=== PATIENT | female | born 1980 | race Caucasian/White ===

== ENCOUNTER 2019-08-11 09:48 | Inpatient (IN) | payer BC ==
[~2019-08-11] VITALS: Ht 160 cm; Wt 68.9 kg
[2019-08-11] MEDS ORDERED: ONDANSETRON 2MG/ML, 2ML ONE (10:28)
[2019-08-11] MEDS ORDERED: SODIUM CHLORIDE FLUSH 10ML SYR IVF ONE (10:30)
[2019-08-11] MEDS ORDERED: ONDANSETRON 2MG/ML, 2ML IVPush ONE (10:30)
[2019-08-11] MEDS ORDERED: SODIUM CHLORIDE 0.9% 1,000ML IVBOLUS ONE (10:30)
[2019-08-11] MEDS ORDERED: HYDR-3241 PO (10:39)
[2019-08-11 10:41] LABS: BASOPHILS # (AUTO) 0.15 x10^3/uL (0-0.1); BASOPHILS % (AUTO) 1 % (0-1); EOSINOPHILS % (AUTO) 0 % (1-7); LYMPHOCYTES # (AUTO) 2.77 x10^3/uL (1-3.4); LYMPHOCYTES % (AUTO) 21 % (22-44); MD NO; MEAN CORPUSCULAR HGB CONC 33.6 g/dL (32.4-35.8); MEAN CORPUSCULAR VOLUME 92.1 fL (80-100); MEAN PLATELET VOLUME 8.8 fL (7.4-10.4); MONOCYTES # (AUTO) 0.67 x10^3/uL (0.2-0.8); MONOCYTES % (AUTO) 5 % (2-9); NEUTROPHILS # (AUTO) 9.95 x10^3/uL (1.8-6.8); NEUTROPHILS % (AUTO) 74 % (42-75); PLATELET COUNT 301 x10^3/uL (130-400); RED BLOOD COUNT 4.86 x10^6/uL (3.82-5.3); RED CELL DISTRIBUTION WIDTH 12.8 % (9.6-15.2)
[2019-08-11] MEDS ORDERED: METOCLOPRAMIDE 5 MG/ML, 2ML ONE (10:45)
--- NOTE | 2019-08-11 10:49 | NUR ---
remain nauseated/ vomited x 2 post med care manager. Provider made aware to admin regaln
[2019-08-11 10:51] LABS: ALANINE AMINOTRANSFERASE 33 U/L (12-78); ALBUMIN 4.8 g/dL (3.4-5.0); ANION GAP 10 mmol/L (5-15); CALCIUM 9.5 mg/dL (8.5-10.1); CHLORIDE 98 mmol/L (98-107)
[2019-08-11 10:54] LABS: ALKALINE PHOSPHATASE 92 U/L (45-117); CREATININE 1.06 mg/dL (0.55-1.02); TOTAL PROTEIN 8.5 g/dL (6.4-8.2)
[2019-08-11] MEDS ORDERED: METOCLOPRAMIDE 5 MG/ML, 2ML IVPush ONE (11:00)
--- NOTE | 2019-08-11 11:27 | NUR ---
Remain nauseated- Provider to bedside. Provider asked for clonidine (patient has not has her home 7.5 of [place] which she takes tid for a few day). Provider would like phernergan instead
[2019-08-11] MEDS ORDERED: PROMETHAZINE 25 MG/ML, 1ML IM ONE (11:30)
[2019-08-11] MEDS ORDERED: PROMETHAZINE 25 MG/ML, 1ML ONE (11:30)
--- NOTE | 2019-08-11 11:30 | NUR ---
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
--- NOTE | 2019-08-11 11:39 | NUR ---
medicated per emar reminded of need for ua
--- NOTE | 2019-08-11 12:01 | NUR ---
Nausea improved to 1/10. Provider made aware. Provider asked for order for gi cocktail (remain with reflux symptoms) and potassium orders
[2019-08-11] MEDS ORDERED: MAALOX/HYOSCYAMINE/LIDOCAINE 45 ML BTL ONE (12:06)
[2019-08-11] MEDS ORDERED: POTASSIUM CHLORIDE 40 MEQ in SODIUM CHLORIDE 0.9% 500 ML IV ONE (12:30)
[2019-08-11] MEDS ORDERED: MAALOX/HYOSCYAMINE/LIDOCAINE 45 ML BTL PO ONE (12:30)
--- NOTE | 2019-08-11 12:30 | NUR ---
PROVIDED WITH LUNCH TRAY. POTASSIUM REPLETION RECEIVED FROM PHARMACY- TO ADMIN SHORTLY
[2019-08-11 13:23] LABS: MICROSCOPIC NOT IND
[2019-08-11 13:24] LABS: CULTURE INDICATED? NO
[2019-08-11 13:44] VITALS: BP 116/75
[2019-08-11] MEDS ORDERED: POTASSIUM CHLORIDE 20 MEQ in SODIUM CHLORIDE 0.9% 250 ML IV ONE (14:00)
[2019-08-11] MEDS ORDERED: ENOXAPARIN 40 MG/0.4 ML SQ SCH (14:00)
[2019-08-11] MEDS: SODIUM CHLORIDE 0.9% 1,000 ML IV SCH (17:37)
[2019-08-11] MEDS: ENOXAPARIN 40 MG/0.4 ML SQ SCH (17:37)
[2019-08-11] MEDS: ACETAMINOPHEN 325 MG TABLET PO PRN (17:37)
[2019-08-11 17:45] VITALS: BP 85/44
[2019-08-11 17:45] LABS: TROPONIN I < 0.015 ng/mL (0.000-0.045)
[2019-08-11 17:50] LABS: MD NO
[2019-08-11 18:23] LABS: BASOPHILS # (AUTO) 0.04 x10^3/uL (0-0.1); BASOPHILS % (AUTO) 0 % (0-1); EOSINOPHILS # (AUTO) 0.01 x10^3/uL (0-0.4); EOSINOPHILS % (AUTO) 0 % (1-7); LYMPHOCYTES # (AUTO) 2.94 x10^3/uL (1-3.4); LYMPHOCYTES % (AUTO) 29 % (22-44); MEAN CORPUSCULAR HEMOGLOBIN 31.1 pg (27.0-34.8); MEAN CORPUSCULAR HGB CONC 33.9 g/dL (32.4-35.8); MEAN CORPUSCULAR VOLUME 91.7 fL (80-100); MEAN PLATELET VOLUME 9.3 fL (7.4-10.4); MONOCYTES # (AUTO) 0.66 x10^3/uL (0.2-0.8); MONOCYTES % (AUTO) 7 % (2-9); NEUTROPHILS # (AUTO) 6.56 x10^3/uL (1.8-6.8); NEUTROPHILS % (AUTO) 64 % (42-75); PLATELET COUNT 230 x10^3/uL (130-400); RED BLOOD COUNT 3.94 x10^6/uL (3.82-5.3); RED CELL DISTRIBUTION WIDTH 12.5 % (9.6-15.2)
[2019-08-11] MEDS ORDERED: OMNIPAQUE 350 MG/ML, 100ML BOTTLE ONE (18:39)
[2019-08-11 20:33] VITALS: BP 97/51
[2019-08-11] MEDS: ZOLPIDEM 10MG TABLET PO PRN (22:02)
[2019-08-11 23:48] LABS: TROPONIN I < 0.015 ng/mL (0.000-0.045)
[2019-08-12 01:28] VITALS: BP 120/73
[2019-08-12] MEDS: SODIUM CHLORIDE 0.9% 1,000 ML IV SCH (05:51)
[2019-08-12] MEDS ORDERED: ONDANSETRON 2MG/ML, 2ML ONE (06:10)
[2019-08-12] MEDS: ONDANSETRON 2MG/ML, 2ML IVPush PRN ×4 (06:12→19:30)
[2019-08-12 06:31] LABS: BASOPHILS # (AUTO) 0.05 x10^3/uL (0-0.1); BASOPHILS % (AUTO) 1 % (0-1); EOSINOPHILS # (AUTO) 0.03 x10^3/uL (0-0.4); EOSINOPHILS % (AUTO) 0 % (1-7); LYMPHOCYTES # (AUTO) 3.29 x10^3/uL (1-3.4); LYMPHOCYTES % (AUTO) 39 % (22-44); MD NO; MEAN CORPUSCULAR HEMOGLOBIN 30.7 pg (27.0-34.8); MEAN CORPUSCULAR HGB CONC 33.3 g/dL (32.4-35.8); MEAN CORPUSCULAR VOLUME 92.4 fL (80-100); MEAN PLATELET VOLUME 9.1 fL (7.4-10.4); MONOCYTES # (AUTO) 0.47 x10^3/uL (0.2-0.8); MONOCYTES % (AUTO) 6 % (2-9); NEUTROPHILS # (AUTO) 4.61 x10^3/uL (1.8-6.8); NEUTROPHILS % (AUTO) 55 % (42-75); PLATELET COUNT 224 x10^3/uL (130-400); RED BLOOD COUNT 4.27 x10^6/uL (3.82-5.3); RED CELL DISTRIBUTION WIDTH 12.6 % (9.6-15.2)
[2019-08-12 06:36] LABS: CHLORIDE 106 mmol/L (98-107)
[2019-08-12 06:37] VITALS: BP 136/88
[2019-08-12 06:58] LABS: ALANINE AMINOTRANSFERASE 30 U/L (12-78); ALBUMIN 3.7 g/dL (3.4-5.0); ALKALINE PHOSPHATASE 72 U/L (45-117); ANION GAP 9 mmol/L (5-15); BILIRUBIN,TOTAL 0.7 mg/dL (0.2-1.0); CALCIUM 8.4 mg/dL (8.5-10.1); CREATININE 0.82 mg/dL (0.55-1.02); TOTAL PROTEIN 6.8 g/dL (6.4-8.2)
[2019-08-12] MEDS ORDERED: POTASSIUM CHLORIDE 40 MEQ in SODIUM CHLORIDE 0.9% 500 ML IV SCH (08:30)
[2019-08-12 08:45] LABS: AMPHETAMINE SCREEN, URINE Negative (Negative); BARBITURATE SCREEN, URINE Negative (Negative); BENZODIAZEPINE SCREEN, URINE Negative (Negative); CANNABINOID SCREEN, URINE Positive (Negative); COCAINE SCREEN, URINE Negative (Negative); METHADONE SCREEN, URINE Negative (Negative); OPIATE SCREEN, URINE Negative (Negative)
[2019-08-12] MEDS ORDERED: POTASSIUM CHLORIDE 20 MEQ TAB.ER.PRT PO SCH ×2 (10:00→10:30)
[2019-08-12] MEDS ORDERED: POTASSIUM PHOSPHATE 88 MEQ in SODIUM CHLORIDE 0.9% 1,000 ML IV ONE (10:00)
[2019-08-12] MEDS ORDERED: POTASSIUM CHLORIDE 20 MEQ TAB.ER.PRT ONE ×2 (10:01→14:35)
[2019-08-12] MEDS: LORazepam 2 MG/ML, 1ML IVPush PRN (10:27)
[2019-08-12] MEDS ORDERED: MAGNESIUM SULFATE PMX 2GM/50ML 50 ML IV ONE (10:30)
[2019-08-12 12:49] VITALS: BP 129/88
[2019-08-12] MEDS: ENOXAPARIN 40 MG/0.4 ML SQ SCH ×2 (16:30→17:35)
[2019-08-12] MEDS: ZOLPIDEM 10MG TABLET PO PRN (19:30)
[2019-08-12 19:32] VITALS: BP 137/94
[2019-08-12] MEDS ORDERED: POTASSIUM CHLORIDE 80 MEQ in SODIUM CHLORIDE 0.9% 1,000 ML IV ONE (22:00)
[2019-08-13 03:00] VITALS: BP 136/89
[2019-08-13] MEDS: ACETAMINOPHEN 325 MG TABLET PO PRN (03:15)
[2019-08-13] MEDS: ONDANSETRON 2MG/ML, 2ML IVPush PRN ×2 (03:15→07:36)
[2019-08-13] MEDS: LORazepam 2 MG/ML, 1ML IVPush PRN (03:15)
[2019-08-13] MEDS: SODIUM CHLORIDE 0.9% 1,000 ML IV SCH (03:15)
[2019-08-13 06:21] LABS: BASOPHILS # (AUTO) 0.11 x10^3/uL (0-0.1); BASOPHILS % (AUTO) 1 % (0-1); EOSINOPHILS # (AUTO) 0.04 x10^3/uL (0-0.4); EOSINOPHILS % (AUTO) 0 % (1-7); LYMPHOCYTES % (AUTO) 34 % (22-44); MD NO; MEAN CORPUSCULAR HEMOGLOBIN 30.8 pg (27.0-34.8); MEAN CORPUSCULAR HGB CONC 33.3 g/dL (32.4-35.8); MEAN CORPUSCULAR VOLUME 92.7 fL (80-100); MEAN PLATELET VOLUME 9.1 fL (7.4-10.4); MONOCYTES # (AUTO) 0.67 x10^3/uL (0.2-0.8); MONOCYTES % (AUTO) 6 % (2-9); NEUTROPHILS # (AUTO) 6.76 x10^3/uL (1.8-6.8); NEUTROPHILS % (AUTO) 59 % (42-75); PLATELET COUNT 280 x10^3/uL (130-400); RED BLOOD COUNT 4.98 x10^6/uL (3.82-5.3); RED CELL DISTRIBUTION WIDTH 12.4 % (9.6-15.2)
[2019-08-13 06:23] LABS: ANION GAP 8 mmol/L (5-15); CALCIUM 8.9 mg/dL (8.5-10.1); CHLORIDE 106 mmol/L (98-107)
[2019-08-13 06:52] VITALS: BP 123/87
== END 2019-08-13 10:44 | disposition home or self-care (01) | DRG 392 ==
LOC: ED 10:56 → INTOOBSV 12:22 → EDIP 12:22 → OBSVTOIN 12:22 → 4EST 13:39 → 4WST 17:50
PROVIDERS: ADMIT Internal Medicine; ATTEND Internal Medicine
DX: A08.4 Viral intestinal infection, unspecified (principal); E83.39 Other disorders of phosphorus metabolism; E87.6 Hypokalemia; Z90.49 Acquired absence of other specified parts of digestive tract; Z90.710 Acquired absence of both cervix and uterus
CPT/HCPCS: 36415; 71045; 74177; 80048; 80053; 80307; 81003; 83690; 83735; 84100; 84132; 84443; 84484; 85025; 87040; 93005; 96372; 96374; 96375; G0378; J1650; J2405; J2550; J3480; Q9967; J2060; J2765; J3475; J7030; J7040; J7050